=== PATIENT | male | born 1955 | race Caucasian/White ===

== ENCOUNTER → 2017-12-13 | Outpatient (CLI) | payer OTHER ==
[~2017-12-13] MED LIST: PROTONIX40 M4 PO
== END ==
LOC: RAD 09:27
DX: R05 Cough (principal); R06.02 Shortness of breath

== ENCOUNTER → 2019-09-21 | Outpatient (CLI) | payer OTHER | LOC: MRI 12:16 | DX: S83.241A Other tear of medial meniscus, current injury, right knee, initial encounter (principal); M25.461 Effusion, right knee; M94.261 Chondromalacia, right knee; M76.41 Tibial collateral bursitis [Pellegrini-Stieda], right leg; X58.XXXA Exposure to other specified factors, initial encounter; Y93.89 Activity, other specified; Y92.89 Other specified places as the place of occurrence of the external cause; Y99.8 Other external cause status ==

== ENCOUNTER → 2021-02-28 | Outpatient (CLI) | payer OTHER | LOC: NUC 09:24 | PROVIDERS: ATTEND Family Medicine | DX: R07.81 Pleurodynia (principal) ==